=== PATIENT | male | born 1990 | race Caucasian/White ===

== ENCOUNTER 2017-10-13 07:57 | Day surgery (SDC) | payer OTHER ==
[~2017-10-13] VITALS: Ht 188 cm; Wt 112.0 kg
[2017-10-13] MEDS ORDERED: LR 1,000 ML IV ONE (08:15)
[2017-10-13] MEDS ORDERED: LIDOCAINE 1% MDV 20ML VIAL As Ordered ONE (09:02)
[2017-10-13] MEDS ORDERED: BUPIVACAINE HCL 0.25% 10 ML VIAL As Ordered ONE (09:02)
[2017-10-13] MEDS ORDERED: HYDROcodone/APAP LIQUID 7.5-325MG 15ML UDC (LORTAB ELIXIR) PO PRN (10:30)
[2017-10-13] MEDS ORDERED: HYCE0.1S PO (10:32)
[2017-10-13] MEDS ORDERED: ONDANSETRON 4MG/2ML VIAL (J2405) As Ordered ONE (10:48)
[2017-10-13] MEDS ORDERED: MIDAZOLAM INJ 2 MG/2 ML VIAL (J2250) As Ordered ONE (10:48)
[2017-10-13] MEDS ORDERED: fentaNYL 250 MCG/5 ML INJECTION (J3010) As Ordered ONE (10:48)
[2017-10-13] MEDS ORDERED: GLYCOPYRROLATE INJ 0.2 MG/ML 2 ML VIAL As Ordered ONE (10:48)
[2017-10-13] MEDS ORDERED: PROPOFOL 500 MG/50 ML VIAL As Ordered ONE (10:48)
[2017-10-13] MEDS ORDERED: dexameTHASONE 4 MG/ML 1ML VIAL (J1100) As Ordered ONE (10:48)
[2017-10-13] MEDS ORDERED: ESMOLOL INJ 100MG/10ML VIAL As Ordered ONE (11:05)
--- NOTE | 2017-10-13 11:19 | ROOPDOC ---
[facility] Report Of Operation Report of Operation DATE OF PROCEDURE: 10/13/17 PREPROCEDURE DIAGNOSES: [Chronic tonsillitis with tonsil calculus]. POSTPROCEDURE DIAGNOSES: [Same]. PROCEDURE: [Tonsillectomy]. SURGEON: [Wan Farrell], LINUX CONSULTANT: [None], MD ANESTHESIA: [Gen. via endotracheal tube]. ESTIMATED BLOOD LOSS: Approximately [1] mL. COMPLICATIONS: [None]. REMARKS: [Endophytic tonsils, going fairly deep and inferiorly. Tonsil calculus present.]. PROCEDURE NOTE: [With the patient in the supine position after being induced, intubated, prepped and draped in the usual fashion. Patient had a Lam mouth gag with a grooved tongue blade placed for retraction. The curved tonsillar Allis clamp was utilized to medialize the left tonsil, which was very endophytic and also going fairly inferiorly. This was dissected out with a Evac- 70 Coblator wand with settings of 7 Coblation and 3 coagulation. Patient tolerated this well. No significant bleeding. Attention then was drawn to the right side in a similar fashion, the tonsil was fairly deep endophytic as well as going inferiorly. This was also removed without complications. Estimated blood loss was less than 1 mL. Area was injected with 2-1/2 mL of a mixture of 1 % lidocaine, 0.5% bupivacaine with a 27-gauge needle for postop analgesia. There were no problems, no complications. I should also mentioned that a red rubber Chu was placed in left nasal cavity, brought out the oral cavity for soft palate retraction. DESCRIPTION OF PROCEDURE: [Tonsillectomy]. WAN FARRELL MD Oct 13, 2017 11:19
[2017-10-13] MEDS ORDERED: LR 1,000 ML IV SCH (12:15)
[2017-10-13] MEDS ORDERED: fentaNYL 100 MCG/2 ML INJECTION (J3010) IV PRN (12:15)
[2017-10-13] MEDS ORDERED: ONDANSETRON 4MG/2ML VIAL (J2405) IV PRN (12:15)
[2017-10-13 14:05] VITALS: BP 137/86
== END 2017-10-13 14:20 | disposition home or self-care (01) ==
LOC: M SDC 07:57
PROVIDERS: ATTEND Otolaryngology
DX: J35.01 Chronic tonsillitis (principal); J35.8 Other chronic diseases of tonsils and adenoids; G47.30 Sleep apnea, unspecified; Z87.891 Personal history of nicotine dependence
CPT/HCPCS: 42826; 88302; J1100; J2250; J2405; J3010